=== PATIENT | female | born 1995 | race Two or more races ===

== ENCOUNTER 2019-11-14 12:31 | Emergency (ER) | payer OTHER ==
[~2019-11-14] VITALS: Ht 160 cm; Wt 74.0 kg
[2019-11-14] MEDS ORDERED: LIDOCAINE 1% PF 30 ML VIAL. INJ ONE (12:45)
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
[2019-11-14 14:02] VITALS: BP 118/75
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
== END 2019-11-14 14:59 | disposition home or self-care (01) ==
LOC: ER 12:31
DX: S51.012A Laceration without foreign body of left elbow, initial encounter (principal); Z88.0 Allergy status to penicillin; V49.88XA Car occupant (driver) (passenger) injured in other specified transport accidents, initial encounter; Y92.488 Other paved roadways as the place of occurrence of the external cause; Y93.89 Activity, other specified; Y99.8 Other external cause status
CPT/HCPCS: 12032; 73080; 99285; J3490